=== PATIENT | female | born 1980 | race Caucasian/White ===

== ENCOUNTER 2017-05-12 10:54 | Outpatient (CLI) ==
[2015-10-07 09:31] VITALS: BMI 35.2
== END 2017-05-12 10:55 | disposition home or self-care (01) ==
LOC: LAB 10:54
PROVIDERS: ATTEND Nurse Practitioner Family
DX: R06.02 Shortness of breath (principal); I10 Essential (primary) hypertension; T14.8XXA Other injury of unspecified body region, initial encounter; J02.9 Acute pharyngitis, unspecified; Z82.49 Family history of ischemic heart disease and other diseases of the circulatory system
CPT/HCPCS: 36415; 80053; 80061; 81241; 84443; 85007; 85025; 85384; 85610; 85730; 87651; 93005; 93010

== ENCOUNTER 2017-05-26 08:01 | Outpatient (CLI) | payer OTHER ==
[2015-10-07 09:31] VITALS: BMI 35.2
== END 2017-05-26 08:02 | disposition home or self-care (01) ==
LOC: LAB 08:01
PROVIDERS: ATTEND Nurse Practitioner Family
DX: R94.6 Abnormal results of thyroid function studies (principal)
CPT/HCPCS: 36415; 84439; 84443

== ENCOUNTER 2017-06-25 08:38 | Outpatient (CLI) | payer OTHER ==
[2015-10-07 09:31] VITALS: BMI 35.2
== END 2017-06-25 08:39 | disposition home or self-care (01) ==
LOC: CAR 08:38
PROVIDERS: ATTEND Emergency Medicine
DX: R00.2 Palpitations (principal)
CPT/HCPCS: 93227

== ENCOUNTER 2017-07-15 09:51 | Outpatient (CLI) | payer OTHER ==
[2015-10-07 09:31] VITALS: BMI 35.2
== END 2017-07-15 09:52 | disposition home or self-care (01) ==
LOC: LAB 09:51
PROVIDERS: ATTEND Nurse Practitioner Family
DX: R94.6 Abnormal results of thyroid function studies (principal)
CPT/HCPCS: 36415; 84443

== ENCOUNTER 2017-08-07 08:32 | Outpatient (CLI) ==
[2015-10-07 09:31] VITALS: BMI 35.2
== END 2017-08-07 08:33 | disposition home or self-care (01) ==
LOC: LAB 08:32
PROVIDERS: ATTEND Nurse Practitioner Family
DX: E03.9 Hypothyroidism, unspecified (principal)
CPT/HCPCS: 36415; 84443

== ENCOUNTER 2017-11-24 07:44 | Outpatient (CLI) ==
[2015-10-07 09:31] VITALS: BMI 35.2
== END 2017-11-24 07:45 | disposition home or self-care (01) ==
LOC: LAB 07:44
PROVIDERS: ATTEND Nurse Practitioner Family
DX: E03.9 Hypothyroidism, unspecified (principal)
CPT/HCPCS: 36415; 84443

== ENCOUNTER 2017-12-22 10:07 | Outpatient (CLI) | payer OTHER ==
[2015-10-07 09:31] VITALS: BMI 35.2
== END 2017-12-22 10:08 | disposition home or self-care (01) ==
LOC: LAB 10:07
PROVIDERS: ATTEND Nurse Practitioner Family
DX: E03.9 Hypothyroidism, unspecified (principal)
CPT/HCPCS: 36415; 84443

== ENCOUNTER 2018-02-12 16:35 | Outpatient (CLI) ==
[2015-10-07 09:31] VITALS: BMI 35.2
== END 2018-02-12 16:36 | disposition home or self-care (01) ==
LOC: LAB 16:35 → RHC-LAB 16:36
PROVIDERS: ATTEND Nurse Practitioner Family
DX: R05 Cough (principal)

== ENCOUNTER 2018-04-16 20:53 | Emergency (ER) | payer OTHER ==
[2018-04-16 21:05] VITALS: TEMP 97.7; BMI 41.1
--- NOTE | 2018-04-16 21:12 | ED.PDOC ---
General ED Provider: Dr. JALEESA RAMIREZ-ER Chief Complaint: Non-specific Complaint Stated Complaint: i have a wound on my breast after a fall Time Seen by Physician: 21:10 Mode of Arrival: Walk-In Information Source: Patient Exam Limitations: No limitations Primary Care Provider: NURY BARRIOS Nursing and Triage Documentation Reviewed and Agree: Yes Does patient meet sepsis criteria?: No System Inflammatory Response Syndrome: Not Applicable Sepsis Protocol: For patient's 13 years and over: Temp is 96.8 and below OR 101 and greater Pulse >90 BPM Resp >20/minute Acutely Altered Mental Status Are patient's symptoms suggestive of a new infection, such as: -Pneumonia -Skin, Soft Tissue -Endocarditis -UTI -Bone, Joint Infection -Implantable Device -Acute Abdominal Infection -Wound Infection -Meningitis -Blood Stream Catheter Infection -Unknown Skin Complaint Exam - Skin/Soft Tissue Complaint/Exam Onset/Duration: 2 weeks Symptoms Are: Still present Timing: Intermittent Initial Severity: Mild Current Severity: Mild Location: right breast Character: Reports: Painful Aggravating: Reports: None Alleviating: Reports: None Associated Signs and Symptoms: Reports: Bruising, Tenderness Related History: Reports: Recent trauma Recent Exposure to Others w/Similar Symptoms: No Skin Findings: Present: Erythema, Wet ulceration Joint Tenderness Present: No Differential Diagnoses: Infection Review of Systems - Review Of Systems Constitutional: Reports: No symptoms Eyes: Reports: No symptoms Ears, Nose, Mouth, Throat: Reports: No symptoms Respiratory: Reports: No symptoms Cardiac: Reports: No symptoms GI: Reports: No symptoms : Reports: No symptoms Musculoskeletal: Reports: No symptoms Skin: Reports: Lesions Neurological: Reports: No symptoms Endocrine: Reports: No symptoms Hematologic/Lymphatic: Reports: No symptoms All Other Systems: Reviewed and Negative Past Medical History - Past Medical History Previously Healthy: No Endocrine: Reports: None Cardiovascular: Reports: Hypertension Respiratory: Reports: None Hematological: Reports: None Gastrointestinal: Reports: None Genitourinary: Reports: None Neuro/Psych: Reports: None Musculoskeletal: Reports: Back Pain Cancer: Reports: None Last Menstrual Period: hyst 2007 - Surgical History General Surgical History: Reports: Hysterectomy, Cholecystectomy, Back Surgery - Family History Family History: Reports: Unknown - Social History Smoking Status: Current some day smoker, Light tobacco smoker Hx Substance Use: No Alcohol Screening: None - Immunizations Tetanus Shot up to Date: Yes Physical Exam - Physical Exam Appearance: Well-appearing Eyes: RAN, EOMI, Conjunctiva clear ENT: Ears normal, Nose normal, Oropharynx normal Neck: Supple Respiratory: Airway patent, Breath sounds clear, Breath sounds equal, Respirations nonlabored Cardiovascular: RRR, Pulses normal, No rub, No murmur GI/: Soft, Nontender, No masses, Bowel sounds normal, No Organomegaly Musculoskeletal: Normal strength, ROM intact, No edema, No calf tenderness Skin: Warm (1cm abrasion without active bleeding), Dry, Normal color Neurological: Sensation intact, Motor intact, Reflexes intact, Cranial nerves intact, Alert, Oriented Psychiatric: Affect appropriate, Mood appropriate Critical Care Note - Critical Care Note Total Time (mins): 0 Course - Course Vital Signs: Temp Pulse Resp BP Pulse Ox 04/16/18 20:54 97.7 F 101 H 20 183/96 H 98 Departure - Departure Time of Disposition: 21:12 Disposition: HOME SELF-CARE Discharge Problem: Wound, breast Qualifiers: Encounter type: initial encounter Laterality: right Qualified Code(s): S21.001A - Unspecified open wound of right breast, initial encounter HTN (hypertension) Qualifiers: Hypertension type: essential hypertension Qualified Code(s): I10 - Essential ( primary) hypertension Instructions: Wound Infection (ED) Condition: Good Pt referred to PMD for follow-up: Yes IPMP verified?: No Additional Instructions: keflex 500mg qid x 7 days---bactroban ointment to wound bid till healed---clean with soap and water only.---monitor bp at home to make sure not elevated Allergies/Adverse Reactions: Allergies No Known Allergies Allergy (Verified 04/16/18 21:03) Home Medications: Ambulatory Orders Baclofen 20 mg PO tid prn 07/27/13 Oxycodone HCl/Acetaminophen [Percocet 7.5-325 Mg Tablet] 1 each PO TID PRN 07/27 Meloxicam [Mobic] 15 mg PO DAILY 11/01/14 Gabapentin 300 mg PO TID 10/07/15 Disposition Discussed With: Patient, Family
[2018-04-16 21:26] VITALS: BP 147/87
== END 2018-04-16 21:29 | disposition home or self-care (01) ==
LOC: ED 20:53
DX: S21.001A Unspecified open wound of right breast, initial encounter (principal); I10 Essential (primary) hypertension; W19.XXXA Unspecified fall, initial encounter; F17.210 Nicotine dependence, cigarettes, uncomplicated
CPT/HCPCS: 99282

== ENCOUNTER 2018-04-21 09:18 | Outpatient (CLI) | END 2018-04-21 09:19 | disposition home or self-care (01) | LOC: RHC-LAB 09:18 | PROVIDERS: ATTEND Nurse Practitioner Family | DX: S29.9XXD Unspecified injury of thorax, subsequent encounter (principal); T79.2XXD Traumatic secondary and recurrent hemorrhage and seroma, subsequent encounter; D69.9 Hemorrhagic condition, unspecified | CPT/HCPCS: 36415; 85025; 85610; 85730 ==

== ENCOUNTER 2018-04-24 08:43 | Outpatient (CLI) ==
--- NOTE | 2018-04-24 10:16 | MAMMO ---
EXAM: Bilateral digital diagnostic mammogram (2-D and 3-D) History: Right breast ulcer, trauma. Comparison: None available. Findings: MLO and CC views of bilateral breasts demonstrate predominately fat replaced breast parenc hyma. Focal asymmetry within the upper-outer quadrant of the left breast. A few benign bilateral br east calcifications. Small benign lymph node within the right axillary tail. No masses are seen wit hin the right breast. Impression: 1. Indeterminate asymmetry within the upper-outer quadrant of the left breast. Recommend further ev aluation with left breast ultrasound. 2. Recommend right breast ultrasound to evaluate for the right breast palpable abnormality. BIRADS 0, incomplete. Further evaluation recommended
--- NOTE | 2018-04-24 10:23 | US ---
EXAM: Bilateral breast ultrasound. History: Right breast ulcer and palpable abnormality, left breast asymmetry. Comparison: Bilateral mammogram 04/24/2018 Technique: Multiple sonographic images through the bilateral breasts were obtained. Color duplex Do ppler was used to interrogate vascular flow. Findings: No masses, cysts or fluid collections identified within either breast. Impression: No sonographic evidence for malignancy. Recommend 6-month follow-up left mammogram to [facility] stability of the mammographic asymmetry that was not identified with ultrasound. BIRADS 3, probably benign
== END 2018-04-24 08:44 | disposition home or self-care (01) ==
LOC: RAD 08:43
PROVIDERS: ATTEND Nurse Practitioner Family
DX: N63.14 Unspecified lump in the right breast, lower inner quadrant (principal); S29.9XXD Unspecified injury of thorax, subsequent encounter